=== PATIENT | female | born 1980 | race Caucasian/White ===

== ENCOUNTER 2016-10-19 19:29 | Inpatient (IN) | payer OTHER ==
[2016-10-19] VITALS (21 sets, daily range): BP systolic 107–164; BP diastolic 58–111; PULSE 65–98; RESP 18–20
[~2016-10-19] VITALS: Ht 160 cm; Wt 68.0 kg
[~2016-10-19 19:29] MED LIST: DIPHTH/TETANUS/ACEL PERTUSSIS (BOOSTER) 0.5 ML VIAL/PFS IM ONE; MEASLES, MUMPS, RUBELLA VACCINE 0.5 ML VIAL SQ ONE
[2016-10-19] MEDS ORDERED: LACTATED RINGER'S 1000 ML INJ 1,000 ML IV PRN (20:08)
[2016-10-19] MEDS: LACTATED RINGER'S 1000 ML INJ 1,000 ML IV SCH ×2 (20:08→23:08)
--- NOTE | 2016-10-19 20:08 | HHI.HP ---
HPI Chief Complaint Contraction pain Date Seen: Oct 19, 2016 Travel History International Travel<30 Days: No Contact w/Intl Traveler<30Days: No Known Affected Area: No History of Present Illness HPI This patient is a 35-year-old white female A1 at 39 weeks gestation presents complaining of regular contractions since 4:00 this afternoon that are painful and regular. Denies bleeding or rupture the membranes. heart rate tracing is reactive and she is michael every 2-[address] Taylor for care and Dr. Guerrero cotton stomper for the group thierry Para: 1 : 3 Miscarriage: 1 History Obstetric History Obstetric History One vaginal delivery ,,1 early loss Social History Alcohol Use: No Tobacco Use: No Substance Abuse: No Review of Systems General / Constitutional: No: Fever, Weight Gain, Chills, Other Eyes: No: Diploplia, Blurred Vision, Visual changes, Pain, Photophobia HENT: No: Headaches, Vertigo, Lightheadedness Cardiovascular: No: Irregular Rhythm, Chest Pain or Discomfort, Palpitations, Tachycardia, Syncope, Varicosities, Edema, Cyanosis Respiratory: No: Cough, Short of Breath, Other Gastrointestinal: Abdominal Pain, No: Nausea, Vomiting, Diarrhea Genitourinary: No: Decreased Urinary Output, Oliguria Musculoskeletal: No: Limited ROM, Weakness, Cramping, Edema, Pain Skin: No Rash, No Itching, No Dryness, No Lumps, No Change in Pigmentation, No Change in Nails, No Alopecia, No Lesions Neurologic: No: Weakness, Dizziness, Syncope, Focal Abnormalities, Coordination Problem, Headache, Slurred Speech, Seizures Psychiatric: No: Depression, Suicidal Ideations, Homicidal Ideation Endocrine: No: Heat Intolerance, Cold Intolerance, Polydipsia, Polyuria, Other Physical Exam Narrative GENERAL: Well-nourished, well-developed patient. SKIN: Warm and dry. HEAD: Normocephalic and atraumatic. EYES: No scleral icterus. No injection or drainage. ENT: No nasal drainage noted. Mucous membranes pink. Airway patent. NECK: Supple, trachea midline. No JVD. CARDIOVASCULAR: Regular rate and rhythm without murmurs, gallops, or rubs. RESPIRATORY: Breath sounds equal bilaterally. No accessory muscle use. BREASTS: Bilateral exam showed no masses , no retractions, no nipple discharge. ABDOMEN/GI: Abdomen soft, non-tender, bowel sounds present, no rebound, no guarding Gravid to [-39] weeks size Fundal Height: [38-] GENITOURINARY: External Genitalia: intact and normal in appearance BUS glands: [-] Cervix: [-] Dilatation: [-5] Effacement: [-90] Station: [0-] Presentation: [vtx-] Membranes: [intact Uterine Contractions: [-q 2 min] FHT's: Category: [1-] Baseline: [-144] Reactive: [yes-] Variability: [mod-] Decels: [-none] EXTREMITIES: No cyanosis or edema. BACK: Nontender without obvious deformity. No CVA tenderness. NEUROLOGICAL: Awake and alert. Motor and sensory grossly within normal limits. Five out of 5 muscle strength in all muscle groups. Normal speech. Assessment/Plan Assessment and Plan This patient is 35-year-old white female A1 at 39 weeks by good criteria records are available followed by Dr. Taylor for care. She presents combining of regular painful contractions noted to be 5 cm dilated 90% effaced at a 0 station vertex. heart rate tracing is reactive contractions are seen and palpable. Plan to admit for labor management and anticipate vaginal delivery we will notify her Dr. Guerrero the cotton stomper doctor Steven Fuentes II, MD Oct 19, 2016 20:08
[2016-10-19] MEDS ORDERED: MINERAL OIL 10 ML VIAL TOPICAL PRN (20:15)
[2016-10-19] MEDS ORDERED: CITRIC ACID-SODIUM CITRATE LIQ 30 ML UDC PO SCH (20:15)
[2016-10-19] MEDS ORDERED: LIDOCAINE HCL 1% 50 ML VIAL I-DERMAL PRN (20:15)
[2016-10-19] MEDS ORDERED: OXYTOCIN 30 UNITS-500ML PREMIX 500 ML IV ONE (20:15)
[2016-10-19] MEDS ORDERED: PENICILLIN G POTASSIUM INJ 5,000,000 UNITS in SODIUM CHLORIDE 0.9% INJ 100 ML IV ONE (20:15)
[2016-10-19] MEDS ORDERED: LIDOCAINE HCL 1% 50 ML VIAL INFIL PRN (20:15)
[2016-10-19] MEDS ORDERED: SODIUM CHLORID 0.9% 500 ML INJ 500 ML IV PRN (20:15)
[2016-10-19] MEDS ORDERED: SODIUM CHLOR 0.9% 1000 ML INJ 1,000 ML IV PRN (20:28)
[2016-10-19 20:58] LABS: AUTOMATED NEUTROPHIL # 13.6 TH/MM3 (1.8-7.7); BASOPHIL # 0.1 TH/MM3 (0-0.2); BASOPHIL % 0.9 % (0.0-2.0); EOSINOPHIL # 0.1 TH/MM3 (0-0.4); EOSINOPHIL % 0.3 % (0.0-4.0); HEMATOCRIT 38.3 % (35.0-46.0); HEMO FLAGS DIFF FINAL; LYMPH % 10.9 % (9.0-44.0); LYMPHOCYTE # 1.8 TH/MM3 (1.0-4.8); MEAN CELL VOLUME 87.2 FL (80.0-100.0); MEAN CORPUSCULAR HEMOGLOBIN 30.5 PG (27.0-34.0); MEAN CORPUSCULAR HGB CONC 34.9 % (32.0-36.0); MONO % 6.3 % (0.0-8.0); NEUT % 81.6 % (16.0-70.0); PLATELET COUNT 134 TH/MM3 (150-450); RED BLOOD COUNT 4.39 MIL/MM3 (4.00-5.30); RED CELL DISTRIBUTION WIDTH 13.4 % (11.6-17.2); WHITE BLOOD COUNT 16.6 TH/MM3 (4.0-11.0)
[2016-10-19 21:05] LABS: BLOOD, URINE NEG (NEG); COMMENT (UR) CULTURE INDICATED; CULTURE IF INDICATED CULTURE INDICATED; GLUCOSE,URINE NEG (NEG); KETONE, URINE NEG (NEG); NITRITE,URINE NEG (NEG); PH, URINE 6.5 (5.0-8.5); SQUAMOUS EPITHELIAL CELL URINE 2 /hpf (0-5); URINE COLOR LIGHT-YELLOW (YELLW/STRAW)
[2016-10-19] MEDS ORDERED: fentaNYL 2MCG-BUPIV 0.125% INJ 100 ML ONE (21:05)
[2016-10-19] MEDS ORDERED: CALNTAB (21:05)
[2016-10-19] MEDS ORDERED: BUPIVACAINE HCL PF 0.25% 10 ML VIAL ONE (21:26)
--- NOTE | 2016-10-19 22:24 | PD.OB.DELI ---
Delivery Date: Oct 19, 2016 Anesthesia: Epidural Episiotomy: None Vaginal Delivery: Normal, Spontaneous Presentation: Occiput anterior Nuchal Cord: None Delayed cord clamping (45 sec): No (baby no effort for 20 sec) : Male, Single One Minute : 7 Five Minute : 9 Weight: 6# 9 oz Infant Care: Spontaneous crying Placenta: Spontaneous delivery, Intact, 3 vessel cord Laceration: Vaginal laceration, 1 deg Repair: Chromic interrupted Jose Wallace MD Oct 19, 2016 22:24
[2016-10-19] MEDS ORDERED: oxyCODONE/ACETAMINOPHEN 5 MG/325 MG TAB PO PRN ×2 (22:30)
[2016-10-19] MEDS ORDERED: ZOLPIDEM TARTRATE 5 MG TAB PO PRN (22:30)
[2016-10-19] MEDS ORDERED: WITCH HAZEL 50%/GLYCERIN 12.5% 40 PAD JAR TOPICAL PRN (22:30)
[2016-10-19] MEDS ORDERED: SODIUM CHLORIDE 0.9% FLUSH 10 ML FLUSH IV FLUSH PRN (22:30)
[2016-10-19] MEDS ORDERED: ONDANSETRON ODT 4 MG TAB PO PRN (22:30)
[2016-10-19] MEDS ORDERED: BENZOCAINE 20% TOPICAL SPRAY 60 ML CAN TOPICAL PRN (22:30)
[2016-10-19] MEDS ORDERED: ALUMINUM/MAGNESIUM/SIMETH 30 ML CUP PO PRN (22:30)
[2016-10-19] MEDS ORDERED: IBUPROFEN 600 MG TAB PO PRN (22:30)
[2016-10-19] MEDS ORDERED: DOCUSATE SODIUM 50 MG/SENNA 8.6 MG TAB PO PRN (22:30)
[2016-10-19] MEDS ORDERED: ACETAMINOPHEN 325 MG TAB PO PRN (22:30)
[2016-10-20] MEDS ORDERED: PENICILLIN G POTASSIUM INJ 2,500,000 UNITS in SODIUM CHLORIDE 0.9% INJ 100 ML IV SCH (00:15)
[2016-10-20 08:00] VITALS: BP 107/65; PULSE 72; RESP 18; TEMP 98.8
[2016-10-20] MEDS ORDERED: SODIUM CHLORIDE 0.9% FLUSH 10 ML FLUSH IV FLUSH SCH (09:00)
--- NOTE | 2016-10-20 13:17 | HHI.OB ---
Subjective Post Day: 1 Remarks Pt doing well, will come to the office for the circ, no questions Objective Vitals/I&O Vital Signs Date Time Temp Pulse Resp B/P Pulse Ox O2 Delivery O2 Flow Rate FiO2 10/20/16 08:00 98.8 72 18 10/20/16 08:00 107/65 10/19/16 23:45 65 124/76 10/19/16 23:30 68 122/67 10/19/16 23:15 131/78 10/19/16 23:00 80 125/76 10/19/16 22:45 80 127/87 10/19/16 22:43 18 10/19/16 22:42 86 126/58 10/19/16 22:20 18 10/19/16 22:15 89 128/68 10/19/16 22:10 97 10/19/16 22:05 97 10/19/16 22:00 95 10/19/16 22:00 98 164/77 10/19/16 21:55 80 10/19/16 21:52 73 131/74 10/19/16 21:50 82 10/19/16 21:49 78 140/111 10/19/16 21:45 80 10/19/16 21:45 20 10/19/16 21:42 75 138/86 10/19/16 21:40 91 10/19/16 21:39 91 107/74 10/19/16 21:37 89 156/100 10/19/16 21:05 18 Objective Remarks GENERAL: Well-nourished, well-developed patient. CARDIOVASCULAR: Regular rate and rhythm without murmurs, gallops, or rubs. RESPIRATORY: Breath sounds equal bilaterally. No accessory muscle use. ABDOMEN/GI: Abdomen soft, non-tender. Fundus: Firm, non-tender at umbilicus. GENITOURINARY: Light to moderate bleeding. EXTREMITIES: No cyanosis or edema, non-tender, without signs of DVT. Medications and IVs Current Medications Medications (Trade) Dose Ordered Sig/Cherelle Route Start Time Stop Time Status Last Admin (NS Flush) 2 ml BID IV FLUSH 10/20/16 09:00 (NS Flush) 2 ml UNSCH PRN IV FLUSH 10/19/16 22:30 (Tylenol) 650 mg Q4H PRN PO 10/19/16 22:30 (Motrin) 600 mg Q6H PRN PO 10/19/16 22:30 (Percocet 5-325 Mg) 1 tab Q4H PRN PO 10/19/16 22:30 (Percocet 5-325 Mg) 2 tab Q4H PRN PO 10/19/16 22:30 (Americaine 20% Top Spr) 1 spray Q4H PRN TOPICAL 10/19/16 22:30 10/20/16 01:15 (Tucks Pads) 1 applic QID PRN TOPICAL 10/19/16 22:30 10/20/16 01:14 (Tahira-Colace) 2 tab Q12H PRN PO 10/19/16 22:30 (Ambien) 5 mg HS PRN PO 10/19/16 22:30 (Mag-Al Plus Susp Liq) 15 ml Q8H PRN PO 10/19/16 22:30 (Zofran Odt) 4 mg Q6H PRN PO 10/19/16 22:30 Assessment/Plan Assessment and Plan This patient is 35-year-old white female A1 at 39 weeks by good criteria records are available followed by Dr. Hubbard for care. She presents combining of regular painful contractions noted to be 5 cm dilated 90% effaced at a 0 station vertex. heart rate tracing is reactive contractions are seen and palpable. Plan to admit for labor management and anticipate vaginal delivery we will notify her Dr. Guerrero the integrity consultant doctor Discharge Planning plan for discharge tomorrow Alla Hubbard MD Oct 20, 2016 13:17
[2016-10-20 19:57] VITALS: BP 131/79; PULSE 68; RESP 18; TEMP 97.8
[2016-10-21 08:00] VITALS: BP 120/74; PULSE 78; RESP 18; TEMP 98.4
--- NOTE | 2016-10-21 12:06 | HHI.OB ---
Subjective Post Day: 2 Remarks Pt doing well, circ set for monday Objective Vitals/I&O Vital Signs Date Time Temp Pulse Resp B/P Pulse Ox O2 Delivery O2 Flow Rate FiO2 10/21/16 08:00 98.4 10/21/16 08:00 78 18 120/74 10/20/16 19:57 131/79 10/20/16 19:57 97.8 68 18 Objective Remarks GENERAL: Well-nourished, well-developed patient. CARDIOVASCULAR: Regular rate and rhythm without murmurs, gallops, or rubs. RESPIRATORY: Breath sounds equal bilaterally. No accessory muscle use. ABDOMEN/GI: Abdomen soft, non-tender. Fundus: Firm, non-tender at umbilicus. GENITOURINARY: Light to moderate bleeding. EXTREMITIES: No cyanosis or edema, non-tender, without signs of DVT. Medications and IVs Current Medications Medications (Trade) Dose Ordered Sig/Cherelle Route Start Time Stop Time Status Last Admin (NS Flush) 2 ml BID IV FLUSH 10/20/16 09:00 (NS Flush) 2 ml UNSCH PRN IV FLUSH 10/19/16 22:30 (Tylenol) 650 mg Q4H PRN PO 10/19/16 22:30 (Motrin) 600 mg Q6H PRN PO 10/19/16 22:30 (Percocet 5-325 Mg) 1 tab Q4H PRN PO 10/19/16 22:30 (Percocet 5-325 Mg) 2 tab Q4H PRN PO 10/19/16 22:30 (Americaine 20% Top Spr) 1 spray Q4H PRN TOPICAL 10/19/16 22:30 10/20/16 01:15 (Tucks Pads) 1 applic QID PRN TOPICAL 10/19/16 22:30 10/20/16 01:14 ([place]ira-Colace) 2 tab Q12H PRN PO 10/19/16 22:30 (Ambien) 5 mg HS PRN PO 10/19/16 22:30 (Mag-Al Plus Susp Liq) 15 ml Q8H PRN PO 10/19/16 22:30 (Zofran Odt) 4 mg Q6H PRN PO 10/19/16 22:30 Assessment/Plan Assessment and Plan This patient is 35-year-old white female A1 at 39 weeks by good criteria records are available followed by Dr. Hubbard for care. She presents combining of regular painful contractions noted to be 5 cm dilated 90% effaced at a 0 station vertex. heart rate tracing is reactive contractions are seen and palpable. Plan to admit for labor management and anticipate vaginal delivery we will notify her Dr. Guerrero the information systems auditor doctor Discharge Planning plan for discharge today Alla Hubbard MD Oct 21, 2016 12:06
--- NOTE | 2016-10-21 12:09 | HHI.DS ---
Admission Date Oct 19, 2016 at 20:10 Discharge Date: Oct 21, 2016 Admitting Diagnosis term in active labor Diagnosis: Delivery Date: Oct 19, 2016 Vaginal Delivery: Normal : Male, Single Brief History This patient is a 35-year-old white female A1 at 39 weeks gestation presents complaining of regular contractions since 4:00 this afternoon that are painful and regular. Denies bleeding or rupture the membranes. heart rate tracing is reactive and she is michael every 2-[address] Hubbard for care and Dr. Guerrero parole or probation officer for the [facility] Course uncomplicated , normal post course Pt Condition on Discharge: Good Discharge Disposition: Discharge Home Discharge Instructions Diet Instructions: As Tolerated, No Restrictions Activities You Can Perform: Shower Only-No Bath, Pelvic Rest Alla Hubbard MD Oct 21, 2016 12:09
== END 2016-10-21 15:38 | disposition home or self-care (01) | DRG 774 ==
LOC: HOBED 19:29 → H2EB 20:10 → H2EA 20:10 → H1EA 10-20 00:04
PROVIDERS: ADMIT Obstetrics & Gynecology; ATTEND Obstetrics & Gynecology
PROC: 10E0XZZ Delivery of Products of Conception, External Approach (ICD-10-PCS; principal; 2016-10-19)
PROC: 0HQ9XZZ Repair Perineum Skin, External Approach (ICD-10-PCS; 2016-10-19)
PROC: 00HU33Z Insertion of Infusion Device into Spinal Canal, Percutaneous Approach (ICD-10-PCS; 2016-10-19)
PROC: 3E0R3CZ (ICD-10-PCS; 2016-10-19)
DX: O98.82 Other maternal infectious and parasitic diseases complicating childbirth (principal); B95.1 Streptococcus, group B, as the cause of diseases classified elsewhere; O70.0 First degree perineal laceration during delivery; Z37.0 Single live birth; Z3A.39 39 weeks gestation of pregnancy
CPT/HCPCS: 81001; 85025; 86900; 86901; 87086; 90715; 99285; J2540; J3010; J7120